=== PATIENT | male | born 1955 | race Caucasian/White ===

== ENCOUNTER 2018-02-25 10:15 | Day surgery (SDC) | payer BC ==
[~2018-02-25] VITALS: Ht 188 cm; Wt 86.3 kg
[2018-02-25] MEDS ORDERED: GLUCOPHAGE500 MG/TAB PO (10:38)
[2018-02-25] MEDS ORDERED: LIPITOR 40MG TA40 MG PO (10:39)
[2018-02-25] MEDS ORDERED: MULTI VITAMINS1 TAB PO (10:39)
[2018-02-25] MEDS ORDERED: ASPIRIN 81M81 MG/TA2 PO (10:39)
[2018-02-25] MEDS ORDERED: OMEGA-3 1000 MG1 CAP PO (10:39)
[2018-02-25] MEDS ORDERED: LANTUS100 U/ML SQ (10:39)
[2018-02-25 11:07] VITALS: BP 103/57; PULSE 57; TEMP 97.4
[2018-02-25] MEDS ORDERED: MOTRIN 600600 MG/TAB PO (13:34)
[2018-02-25] MEDS ORDERED: NORCO 325 MG-51 TAB PO (13:35)
[2018-02-25 13:55] VITALS: BP 98/68; PULSE 50; TEMP 97.6
[2018-02-25 14:15] VITALS: BP 103/84; PULSE 50
== END 2018-02-25 14:35 | disposition home or self-care (01) ==
LOC: SDCO 10:15
DX: S20.351A Superficial foreign body of right front wall of thorax, initial encounter (principal); W45.8XXA Other foreign body or object entering through skin, initial encounter; E11.9 Type 2 diabetes mellitus without complications; Z79.4 Long term (current) use of insulin; Z83.3 Family history of diabetes mellitus; Z79.899 Other long term (current) drug therapy; Z79.82 Long term (current) use of aspirin
CPT/HCPCS: J0690; J1885; J2250; J2405; J2704; J3010; J7030